=== PATIENT | male | born 1950 | race Caucasian/White ===

== ENCOUNTER 2016-09-17 22:44 | Emergency (ER) | payer BC ==
[~2016-09-17] VITALS: Ht 175.3 cm; Wt 104.3 kg
[~2016-09-17 22:44] MED LIST: ASPI81CH43 GT; AZIT250T; LISIPOW; METOPROLOL; SIMVPOW2
[2016-09-17 23:41] LABS: Urine Bilirubin Negative (Negative); Urine Blood TRACE /uL (Negative); Urine Color Yellow (Yellow); Urine Glucose Normal (Normal); Urine Ketone Negative (Negative); Urine Nitrite Negative (Negative); Urine RBC 1 /hpf (0 - 3); Urine Urobilinogen Normal (Negative); Urine pH 6.5 (5.0-8.0)
[2016-09-17 23:41] LABS: Basophils # (auto) 0 uL; Basophils % (auto) 0.3 % (0.0-2.0); DEFINITIVE VIEW TRANSMISSION; Eosinophils # (auto) 1.3 uL; Eosinophils % (auto) 11.4 % (0.0-7.0); Hematocrit 46.7 % (41.0-53.0); Hemoglobin 15.6 g/dL (13.5-17.5); Lymphocytes # (auto) 2.4 uL; Lymphocytes % (auto) 21.7 % (10.0-50.0); Mean Corpuscular Hemoglobin 29.1 pg (28.0-32.0); Mean Corpuscular Hgb Conc. 33.4 g/dL (32.0-36.0); Mean Corpuscular Volume 87.2 fL (80.0-100.0); Mean Platelet Volume 9.1 fL (7.4-10.4); Monocytes # (auto) 0.8 uL; Monocytes % (auto) 7.3 % (0.0-12.0); Neutrophils # (auto) 6.6 uL; Neutrophils % (auto) 59.3 % (37.0-80.0); Platelet Count (auto) 194 10^3/uL (140-450); Red Cell Distribution Width 14.1 % (11.6-16.0); White Blood Cell 11.2 10^3/uL (4.4-10.8)
[2016-09-17 23:56] LABS: Albumin 3.7 g/dL (3.4-5.0); Anion Gap 7 (5-15); Aspartate Aminotransferase 21 U/L (15-37); BUN/Creatinine Ratio 11.8; Blood Urea Nitrogen 14 mg/dL (7-18); Calcium 8.4 mg/dL (8.5-10.1); Carbon Dioxide 27 mmol/L (21-32); Chloride 103 mmol/L (98-107); GFR African American 79 mL/min; GFR Non-African American 65 mL/min; Glucose 157 mg/dL (74-106); Magnesium 2.2 mg/dL (1.6-2.6); Potassium 4.5 mmol/L (3.5-5.1); Sodium 137 mmol/L (136-145)
[2016-09-18 00:01] LABS: Alkaline Phosphatase 87 U/L (45-117); Bilirubin, Total 0.5 mg/dL (0.2-1.0); Total Protein 7.7 g/dL (6.4-8.2)
[2016-09-18] MEDS ORDERED: ALBUTEROL SULF 2.5 MG/0.5ML(0.5%) NEB SOLN ONE (00:41)
[2016-09-18] MEDS ORDERED: IPRATROPIUM BROM 0.5 MG/2.5ML INH SOL ONE (00:41)
[2016-09-18] MEDS ORDERED: IPRATROPIUM BROM 0.5 MG/2.5ML INH SOL NEB ONE (00:45)
[2016-09-18] MEDS ORDERED: ALBUTEROL SULF 2.5 MG/0.5ML(0.5%) NEB SOLN NEB ONE (00:45)
[2016-09-18 03:47] VITALS: BP 124/63
== END 2016-09-18 03:58 | disposition home or self-care (01) ==
LOC: ER 22:48
DX: J06.9 Acute upper respiratory infection, unspecified (principal); E78.5 Hyperlipidemia, unspecified; I10 Essential (primary) hypertension
CPT/HCPCS: 36415; 71020; 80053; 81001; 83735; 84484; 85025; 93005; 94640

== ENCOUNTER → 2017-02-11 | Outpatient (CLI) | payer BC ==
[2017-02-11 09:26] LABS: Basophils # (auto) 0.1 uL; Basophils % (auto) 0.8 % (0.0-2.0); CONDITION Y; DEFINITIVE SEE PRINTOUT; Eosinophils # (auto) 0.7 uL; Eosinophils % (auto) 10.3 % (0.0-7.0); Hematocrit 46.5 % (41.0-53.0); Hemoglobin 15.8 g/dL (13.5-17.5); Lymphocytes # (auto) 2.7 uL; Lymphocytes % (auto) 40.1 % (10.0-50.0); Mean Corpuscular Hemoglobin 29.5 pg (28.0-32.0); Mean Corpuscular Volume 86.6 fL (80.0-100.0); Mean Platelet Volume 9.8 fL (7.4-10.4); Monocytes # (auto) 0.6 uL; Monocytes % (auto) 8.5 % (0.0-12.0); Neutrophils # (auto) 2.8 uL; Neutrophils % (auto) 40.3 % (37.0-80.0); Platelet Count (auto) 190 10^3/uL (140-450); Red Cell Distribution Width 13.8 % (11.6-16.0); Urine Bilirubin Negative (Negative); Urine Blood TRACE /uL (Negative); Urine Color Yellow (Yellow); Urine Glucose Normal (Normal); Urine Ketone Negative (Negative); Urine Nitrite Negative (Negative); Urine RBC <1 /hpf (0 - 3); Urine Urobilinogen Normal (Negative); White Blood Cell 6.9 10^3/uL (4.4-10.8)
[2017-02-11 09:48] LABS: Albumin 3.7 g/dL (3.4-5.0); BUN/Creatinine Ratio 16.8; Bilirubin, Total 0.5 mg/dL (0.2-1.0); Calcium 8.8 mg/dL (8.5-10.1); Potassium 4.5 mmol/L (3.5-5.1); Total Protein 7.8 g/dL (6.4-8.2)
== END | disposition home or self-care (01) ==
LOC: LAB 08:05
PROVIDERS: ATTEND Internal Medicine
DX: I10 Essential (primary) hypertension (principal); Z11.59 Encounter for screening for other viral diseases; Z86.010 Personal history of colon polyps
CPT/HCPCS: 36415; 80053; 80061; 81001; 82270; 84153; 84443; 85025; 86704; 86706; 86708; 86803; 87340

== ENCOUNTER → 2017-09-18 | Outpatient (CLI) | payer BC ==
[2017-09-18 10:10] LABS: Alanine Aminotransferase 20 U/L (16-61); Aspartate Aminotransferase 17 U/L (15-37); Cholesterol 156 mg/dL (< 200); HDL Cholesterol 41 mg/dL (40-59); LDL Cholesterol 104 mg/dL (< 100); Triglycerides 116 mg/dL (< 150)
== END | disposition home or self-care (01) ==
LOC: LAB 08:04
PROVIDERS: ATTEND Internal Medicine
DX: I10 Essential (primary) hypertension (principal); E78.00 Pure hypercholesterolemia, unspecified
CPT/HCPCS: 36415; 80061; 84450; 84460

== ENCOUNTER → 2018-03-12 | Outpatient (CLI) | payer BC ==
[2018-03-12 09:55] LABS: Basophils # (auto) 0.1 uL; Basophils % (auto) 0.9 % (0.0-2.0); Eosinophils # (auto) 0.8 uL; Hematocrit 47.2 % (41.0-53.0); Hemoglobin 15.6 g/dL (13.5-17.5); Lymphocytes # (auto) 2.4 uL; Lymphocytes % (auto) 31.6 % (10.0-50.0); Mean Corpuscular Hemoglobin 29.5 pg (28.0-32.0); Mean Corpuscular Hgb Conc. 33.1 g/dL (32.0-36.0); Monocytes # (auto) 0.5 uL; Monocytes % (auto) 6.2 % (0.0-12.0); Neutrophils # (auto) 3.9 uL; Neutrophils % (auto) 51.3 % (37.0-80.0); Nucleated Red Blood Cells % 0.2 %; Platelet Count (auto) 153 10^3/uL (140-450); Red Cell Distribution Width 13.6 % (11.8-14.3); White Blood Cell 7.5 10^3/uL (4.4-10.8)
[2018-03-12 10:08] LABS: Urine Bacteria NONE SEEN /hpf (None Seen); Urine Blood Negative /uL (Negative); Urine Specific Gravity 1.005 (1.001-1.035); Urine WBC <1 /hpf (0 - 3)
[2018-03-12 10:26] LABS: Albumin 3.6 g/dL (3.4-5.0); BUN/Creatinine Ratio 14.3; Bilirubin, Total 0.5 mg/dL (0.2-1.0); Calcium 8.6 mg/dL (8.5-10.1); Potassium 4.5 mmol/L (3.5-5.1); Total Protein 7.6 g/dL (6.4-8.2)
[2018-03-12 13:52] LABS: Prostate Specific Antigen 1.05 ng/mL (0.0-4.0)
== END | disposition home or self-care (01) ==
LOC: LAB 09:03
PROVIDERS: ATTEND Internal Medicine
DX: I10 Essential (primary) hypertension (principal); J45.909 Unspecified asthma, uncomplicated; Z79.82 Long term (current) use of aspirin
CPT/HCPCS: 36415; 80053; 81001; 82043; 83036; 84153; 84439; 84443; 85025; 85652

== ENCOUNTER → 2018-08-25 | Outpatient (CLI) | payer BC ==
[2018-08-25 13:09] LABS: Basophils # (auto) 0 uL; Eosinophils # (auto) 0 uL; Hematocrit 47.1 % (41.0-53.0); Hemoglobin 15.7 g/dL (13.5-17.5); Lymphocytes # (auto) 2.1 uL; Lymphocytes % (auto) 14.5 % (10.0-50.0); Mean Corpuscular Hemoglobin 29.2 pg (28.0-32.0); Mean Corpuscular Hgb Conc. 33.4 g/dL (32.0-36.0); Mean Corpuscular Volume 87.6 fL (80.0-100.0); Monocytes # (auto) 1.6 uL; Monocytes % (auto) 11.1 % (0.0-12.0); Neutrophils # (auto) 10.8 uL; Neutrophils % (auto) 74.4 % (37.0-80.0); Nucleated Red Blood Cells % 0.1 %; Platelet Count (auto) 185 10^3/uL (140-450); Red Blood Cells 5.37 10^6/uL (4.5-5.90); Red Cell Distribution Width 14.6 % (11.8-14.3); White Blood Cell 14.5 10^3/uL (4.4-10.8)
[2018-08-25 13:38] LABS: Albumin 3.6 g/dL (3.4-5.0); Calcium 8.6 mg/dL (8.5-10.1); Potassium 4.4 mmol/L (3.5-5.1)
[2018-08-25 13:41] LABS: BUN/Creatinine Ratio 27.8; Bilirubin, Total 0.6 mg/dL (0.2-1.0); Total Protein 7.4 g/dL (6.4-8.2)
== END | disposition home or self-care (01) ==
LOC: LAB 12:06
PROVIDERS: ATTEND Internal Medicine
DX: J45.909 Unspecified asthma, uncomplicated (principal)
CPT/HCPCS: 36415; 80053; 85025; 85379

== ENCOUNTER → 2018-09-28 | Outpatient (CLI) | payer BC | END | disposition home or self-care (01) | LOC: LAB 08:44 | PROVIDERS: ATTEND Internal Medicine | DX: J45.41 Moderate persistent asthma with (acute) exacerbation (principal); R55 Syncope and collapse | CPT/HCPCS: 36415; 82565; 84520 ==

== ENCOUNTER → 2018-11-05 | Outpatient (CLI) | payer BC ==
[2018-11-05 10:39] LABS: Hematocrit 48.2 % (41.0-53.0); Mean Corpuscular Hemoglobin 29.7 pg (28.0-32.0); Mean Corpuscular Hgb Conc. 33.2 g/dL (32.0-36.0); Mean Corpuscular Volume 89.5 fL (80.0-100.0); Platelet Count (auto) 176 10^3/uL (140-450); Red Blood Cells 5.39 10^6/uL (4.5-5.90); Red Cell Distribution Width 14.2 % (11.8-14.3); White Blood Cell 10.4 10^3/uL (4.4-10.8)
[2018-11-05 10:40] LABS: Band Neutrophils % (manual) 0; Basophils % (manual) 0 (0.0-2.0); Blast Cells 0; Metamyelocytes % 0; Myelocytes % 0; Promyelocytes % 0; Reactive Lymphocytes 0
[2018-11-05 10:48] LABS: Chloride 104 mmol/L (98-107); Potassium 4.1 mmol/L (3.5-5.1); Sodium 138 mmol/L (136-145)
[2018-11-05 10:51] LABS: Anion Gap 6 (5-15); Blood Urea Nitrogen 12 mg/dL (7-18); Calcium 9.2 mg/dL (8.5-10.1); Carbon Dioxide 28 mmol/L (21-32); Glucose 103 mg/dL (74-106)
[2018-11-05 10:57] LABS: Alanine Aminotransferase 19 U/L (16-61); Alkaline Phosphatase 79 U/L (45-117); Aspartate Aminotransferase 14 U/L (15-37); BUN/Creatinine Ratio 11.3; Bilirubin, Total 0.6 mg/dL (0.2-1.0); GFR African American 90 mL/min; GFR Non-African American 74 mL/min; Total Protein 8.1 g/dL (6.4-8.2)
[2018-11-05 11:09] LABS: Eosinophils % (manual) 27 (0-7); Lymphocytes % (manual) 36 (10.0-50.0); Monocytes % (manual) 5 (0-12)
== END | disposition home or self-care (01) ==
LOC: LAB 10:19
PROVIDERS: ATTEND Internal Medicine
DX: R06.00 Dyspnea, unspecified (principal); Z87.09 Personal history of other diseases of the respiratory system
CPT/HCPCS: 36415; 80053; 84484; 85007; 85027

== ENCOUNTER → 2018-12-15 | Outpatient (CLI) | payer BC ==
[~2018-12-15] VITALS: Ht 175.3 cm; Wt 99.8 kg
[~2018-12-15] MED LIST changes: +DOBUTamine 1000MCG/ML 100 ML IV ONE
== END | disposition home or self-care (01) ==
LOC: XY 07:42
PROVIDERS: ATTEND Internal Medicine
DX: I10 Essential (primary) hypertension (principal)
CPT/HCPCS: 78452; 93017; A9500; J1250

== ENCOUNTER → 2018-12-16 | Outpatient (CLI) | payer BC ==
[~2018-12-16] MED LIST changes: -DOBUTamine 1000MCG/ML 100 ML IV ONE
== END | disposition home or self-care (01) ==
LOC: XYW 07:45
PROVIDERS: ATTEND Internal Medicine
DX: I08.8 Other rheumatic multiple valve diseases (principal); I10 Essential (primary) hypertension
CPT/HCPCS: 93306

== ENCOUNTER → 2019-01-14 | Outpatient (CLI) | payer BC ==
[~2019-01-14] MED LIST changes: +ALBUTEROL SULF 2.5 MG/0.5ML(0.5%) NEB SOLN ONE
== END | disposition home or self-care (01) ==
LOC: RT 09:13
PROVIDERS: ATTEND Internal Medicine Pulmonary Disease
DX: J45.909 Unspecified asthma, uncomplicated (principal)
CPT/HCPCS: 94060; J7611

== ENCOUNTER → 2019-04-01 | Outpatient (CLI) | payer BC ==
[~2019-04-01] MED LIST changes: -ALBUTEROL SULF 2.5 MG/0.5ML(0.5%) NEB SOLN ONE
[2019-04-01 08:41] LABS: Hematocrit 47.2 % (41.0-53.0); Hemoglobin 15.4 g/dL (13.5-17.5); Mean Corpuscular Hemoglobin 29.1 pg (28.0-32.0); Mean Corpuscular Hgb Conc. 32.6 g/dL (32.0-36.0); Mean Corpuscular Volume 89.1 fL (80.0-100.0); Platelet Count (auto) 149 10^3/uL (140-450); Red Blood Cells 5.29 10^6/uL (4.5-5.90); Red Cell Distribution Width 14.4 % (11.8-14.3); White Blood Cell 7.2 10^3/uL (4.4-10.8)
[2019-04-01 08:46] LABS: Basophils % (manual) 0 (0.0-2.0); Blast Cells 0; Metamyelocytes % 0; Myelocytes % 0; Promyelocytes % 0; Reactive Lymphocytes 0; Urine Bacteria FEW /hpf (None Seen); Urine Blood Negative /uL (Negative); Urine Specific Gravity 1.015 (1.001-1.035); Urine WBC <1 /hpf (0 - 3)
[2019-04-01 09:47] LABS: Albumin 3.8 g/dL (3.4-5.0); Potassium 4.5 mmol/L (3.5-5.1)
[2019-04-01 09:52] LABS: Free T4 (Free Thyroxine) 1.03 ng/dL (0.89-1.76); Prostate Specific Antigen 1.12 ng/mL (0.0-4.0)
[2019-04-01 09:56] LABS: Bilirubin, Total 0.6 mg/dL (0.2-1.0); Calcium 8.9 mg/dL (8.5-10.1); Total Protein 7.5 g/dL (6.4-8.2)
[2019-04-01 10:49] LABS: Band Neutrophils % (manual) 1; Eosinophils % (manual) 14 (0-7); Lymphocytes % (manual) 38 (10.0-50.0); Monocytes % (manual) 8 (0-12)
== END | disposition home or self-care (01) ==
LOC: LAB 08:06
PROVIDERS: ATTEND Internal Medicine
DX: E78.5 Hyperlipidemia, unspecified (principal); I10 Essential (primary) hypertension
CPT/HCPCS: 36415; 80053; 80061; 81001; 82043; 84153; 84439; 84443; 85007; 85027; 85652

== ENCOUNTER → 2019-09-27 | Outpatient (CLI) | payer BC ==
[2019-09-27 09:53] LABS: Basophils # (auto) 0.1 10 ^3/uL (0-0.2); Basophils % (auto) 1.2 % (0.0-2.0); Eosinophils % (auto) 13.6 % (0.0-7.0); Hematocrit 48.7 % (41.0-53.0); Hemoglobin 16.4 g/dL (13.5-17.5); Lymphocytes # (auto) 2.3 10 ^3/uL (0.4-5.4); Lymphocytes % (auto) 30.8 % (10.0-50.0); Mean Corpuscular Hemoglobin 29.7 pg (28.0-32.0); Mean Corpuscular Hgb Conc. 33.7 g/dL (32.0-36.0); Mean Corpuscular Volume 88.2 fL (80.0-100.0); Monocytes # (auto) 0.7 10 ^3/uL (0-1.3); Neutrophils # (auto) 3.3 10 ^3/uL (1.6-8.6); Neutrophils % (auto) 44.4 % (37.0-80.0); Platelet Count (auto) 167 10^3/uL (140-450); Red Blood Cells 5.52 10^6/uL (4.5-5.90); Red Cell Distribution Width 13.9 % (11.8-14.3); White Blood Cell 7.4 10^3/uL (4.4-10.8)
[2019-09-27 10:25] LABS: Potassium 4.3 mmol/L (3.5-5.1)
[2019-09-27 10:44] LABS: Albumin 3.9 g/dL (3.4-5.0); BUN/Creatinine Ratio 17.3; Bilirubin, Total 0.5 mg/dL (0.2-1.0); Calcium 9.3 mg/dL (8.5-10.1); Total Protein 7.9 g/dL (6.4-8.2)
== END | disposition home or self-care (01) ==
LOC: LAB 09:35
PROVIDERS: ATTEND Internal Medicine
DX: J45.901 Unspecified asthma with (acute) exacerbation (principal)
CPT/HCPCS: 36415; 80053; 85025; 85652

== ENCOUNTER → 2019-12-15 | Outpatient (CLI) | payer OTHER | END | disposition home or self-care (01) | LOC: LAB 06:30 | PROVIDERS: ATTEND Nurse Practitioner Family | DX: Z03.818 Encounter for observation for suspected exposure to other biological agents ruled out (principal) ==

== ENCOUNTER → 2020-04-19 | Outpatient (CLI) | payer BC ==
[2020-04-19 09:24] LABS: Urine WBC None Seen /hpf (0 - 3)
[2020-04-19 09:37] LABS: Urine Bacteria NONE SEEN /hpf (None Seen); Urine Blood Negative /uL (Negative); Urine Specific Gravity 1.007 (1.001-1.035)
[2020-04-19 09:39] LABS: Basophils # (auto) 0.1 10 ^3/uL (0-0.2); Basophils % (auto) 1.1 % (0.0-2.0); Eosinophils # (auto) 0.9 10 ^3/uL (0-0.8); Eosinophils % (auto) 11.4 % (0.0-7.0); Hematocrit 47.6 % (41.0-53.0); Hemoglobin 16.3 g/dL (13.5-17.5); Lymphocytes # (auto) 2.8 10 ^3/uL (0.4-5.4); Lymphocytes % (auto) 35.3 % (10.0-50.0); Mean Corpuscular Hemoglobin 29.9 pg (28.0-32.0); Mean Corpuscular Hgb Conc. 34.1 g/dL (32.0-36.0); Mean Corpuscular Volume 87.7 fL (80.0-100.0); Monocytes # (auto) 0.7 10 ^3/uL (0-1.3); Monocytes % (auto) 8.6 % (0.0-12.0); Neutrophils # (auto) 3.4 10 ^3/uL (1.6-8.6); Neutrophils % (auto) 43.6 % (37.0-80.0); Nucleated Red Blood Cells % 0.2 %; Platelet Count (auto) 170 10^3/uL (140-450); Red Blood Cells 5.43 10^6/uL (4.5-5.90); Red Cell Distribution Width 14.2 % (11.8-14.3); White Blood Cell 7.8 10^3/uL (4.4-10.8)
[2020-04-19 10:00] LABS: Calcium 9.5 mg/dL (8.5-10.1); Potassium 4.6 mmol/L (3.5-5.1)
[2020-04-19 10:06] LABS: BUN/Creatinine Ratio 16.2; Bilirubin, Total 0.8 mg/dL (0.2-1.0); Total Protein 7.8 g/dL (6.4-8.2)
[2020-04-19 10:11] LABS: Free T4 (Free Thyroxine) 1.23 ng/dL (0.89-1.76); Prostate Specific Antigen 1.12 ng/mL (0.0-4.0)
== END | disposition home or self-care (01) ==
LOC: LAB 08:49
PROVIDERS: ATTEND Internal Medicine
DX: Z12.5 Encounter for screening for malignant neoplasm of prostate (principal); I10 Essential (primary) hypertension; J45.909 Unspecified asthma, uncomplicated
CPT/HCPCS: 36415; 80053; 80061; 81001; 84153; 84439; 84443; 85025; 85652

== ENCOUNTER → 2020-06-11 | Outpatient (CLI) | payer BC | END | disposition home or self-care (01) | LOC: LAB 13:57 | PROVIDERS: ATTEND Nurse Practitioner Family | DX: Z20.828 Contact with and (suspected) exposure to other viral communicable diseases (principal) | CPT/HCPCS: C9803; U0003 ==

== ENCOUNTER → 2020-09-03 | Outpatient (CLI) | payer BC ==
[2020-09-03 11:52] LABS: Hematocrit 44.8 % (41.0-53.0); Hemoglobin 14.8 g/dL (13.5-17.5); Mean Corpuscular Hemoglobin 29.6 pg (28.0-32.0); Mean Corpuscular Hgb Conc. 33.1 g/dL (32.0-36.0); Mean Corpuscular Volume 89.3 fL (80.0-100.0); Platelet Count (auto) 192 10^3/uL (140-450); Red Blood Cells 5.02 10^6/uL (4.5-5.90); White Blood Cell 12.4 10^3/uL (4.4-10.8)
[2020-09-03 11:58] LABS: Band Neutrophils % (manual) 0; Basophils % (manual) 0 (0.0-2.0); Blast Cells 0; Myelocytes % 0; Promyelocytes % 0; Reactive Lymphocytes 0
[2020-09-03 12:18] LABS: Eosinophils % (manual) 12 (0-7); Lymphocytes % (manual) 34 (10.0-50.0); Metamyelocytes % 1; Monocytes % (manual) 12 (0-12)
[2020-09-03 12:25] LABS: Potassium 4.4 mmol/L (3.5-5.1)
[2020-09-03 12:31] LABS: Albumin 3.4 g/dL (3.4-5.0); BUN/Creatinine Ratio 22.3; Bilirubin, Total 0.5 mg/dL (0.2-1.0); Calcium 8.5 mg/dL (8.5-10.1); Total Protein 7.5 g/dL (6.4-8.2)
== END | disposition home or self-care (01) ==
LOC: LAB 11:02
PROVIDERS: ATTEND Internal Medicine
DX: J45.21 Mild intermittent asthma with (acute) exacerbation (principal); Z20.818 Contact with and (suspected) exposure to other bacterial communicable diseases
CPT/HCPCS: 36415; 80053; 85007; 85027; 87070; 87205

== ENCOUNTER → 2021-06-18 | Day surgery (SDC) | payer BC ==
[2021-06-17 10:27] LABS: Urine WBC None Seen /hpf (0 - 3)
[2021-06-17 10:38] LABS: Urine Bacteria NONE SEEN /hpf (None Seen); Urine Blood Negative /uL (Negative); Urine Specific Gravity 1.011 (1.001-1.035)
[2021-06-17 10:44] LABS: Basophils # (auto) 0.1 10 ^3/uL (0-0.2); Basophils % (auto) 0.8 % (0.0-2.0); Eosinophils # (auto) 0.8 10 ^3/uL (0-0.8); Eosinophils % (auto) 9.6 % (0.0-7.0); Hematocrit 45.5 % (41.0-53.0); Hemoglobin 15.5 g/dL (13.5-17.5); Lymphocytes # (auto) 2.8 10 ^3/uL (0.4-5.4); Lymphocytes % (auto) 31.9 % (10.0-50.0); Mean Corpuscular Hgb Conc. 34.1 g/dL (32.0-36.0); Mean Corpuscular Volume 87.9 fL (80.0-100.0); Monocytes # (auto) 0.8 10 ^3/uL (0-1.3); Monocytes % (auto) 9.2 % (0.0-12.0); Neutrophils # (auto) 4.3 10 ^3/uL (1.6-8.6); Neutrophils % (auto) 48.5 % (37.0-80.0); Nucleated Red Blood Cells % 0.2 %; Red Blood Cells 5.18 10^6/uL (4.5-5.90); Red Cell Distribution Width 13.8 % (11.8-14.3); White Blood Cell 8.9 10^3/uL (4.4-10.8)
[2021-06-17 11:27] LABS: Potassium 4.5 mmol/L (3.5-5.1)
[2021-06-17 11:34] LABS: Albumin 3.6 g/dL (3.4-5.0); BUN/Creatinine Ratio 20.6; Bilirubin, Total 0.6 mg/dL (0.2-1.0); Calcium 8.8 mg/dL (8.5-10.1); Total Protein 7.6 g/dL (6.4-8.2)
[~2021-06-18] MED LIST changes: -ASPI81CH43 GT; -AZIT250T; +FLUT500M2 IN; +LATA0.0019 EACHEYE; -METOPROLOL; +MONT-8 OR; +SIMETHICONE 40 MG/0.6 ML ORAL DROP ONE; +TRIA37.56 PO
[2021-06-18] MEDS: diphenhdrAMINE HCL 50 MG/1 ML VL ONE ×2 (10:59→11:04)
[2021-06-18] MEDS: fentaNYL CITRATE 100 MCG/2 ML VL ONE ×3 (10:59→11:16)
[2021-06-18] MEDS: MIDAZOLAM HCL 5 MG/ML-1ML VIAL ONE ×2 (10:59→11:09)
[2021-06-18 12:00] VITALS: BP 121/65
== END | disposition home or self-care (01) ==
LOC: GI 09:07
PROVIDERS: ATTEND Internal Medicine Gastroenterology
DX: R19.4 Change in bowel habit (principal); Q43.8 Other specified congenital malformations of intestine; K64.8 Other hemorrhoids; J45.909 Unspecified asthma, uncomplicated; I10 Essential (primary) hypertension; Z20.822 Contact with and (suspected) exposure to COVID-19
CPT/HCPCS: 36415; 45378; 80053; 81001; 85025; J1200; J2250; J3010; J7030; U0003; 99152; 99153

== ENCOUNTER 2021-10-24 08:30 | Outpatient (CLI) | payer BC ==
[~2021-10-24] VITALS: Ht 175.3 cm; Wt 99.8 kg
[~2021-10-24 08:30] MED LIST changes: -SIMETHICONE 40 MG/0.6 ML ORAL DROP ONE
[2021-10-24 09:22] LABS: Urine WBC None Seen /hpf (0 - 3)
[2021-10-24] MEDS ORDERED: [UNRECOGNIZED DRUG - CODE] IJ (09:23)
[2021-10-24 09:27] LABS: Basophils # (auto) 0.1 10 ^3/uL (0-0.2); Basophils % (auto) 0.7 % (0.0-2.0); Eosinophils % (auto) 12.3 % (0.0-7.0); Hematocrit 44.8 % (41.0-53.0); Hemoglobin 14.9 g/dL (13.5-17.5); Lymphocytes # (auto) 2.7 10 ^3/uL (0.4-5.4); Lymphocytes % (auto) 33.5 % (10.0-50.0); Mean Corpuscular Hgb Conc. 33.2 g/dL (32.0-36.0); Mean Corpuscular Volume 87.3 fL (80.0-100.0); Monocytes # (auto) 0.8 10 ^3/uL (0-1.3); Monocytes % (auto) 9.5 % (0.0-12.0); Neutrophils # (auto) 3.5 10 ^3/uL (1.6-8.6); Nucleated Red Blood Cells % 0.3 %; Red Blood Cells 5.13 10^6/uL (4.5-5.90); Red Cell Distribution Width 14.2 % (11.8-14.3); White Blood Cell 8.1 10^3/uL (4.4-10.8)
[2021-10-24 09:33] LABS: Urine Bacteria NONE SEEN /hpf (None Seen); Urine Blood Negative /uL (Negative); Urine Specific Gravity 1.018 (1.001-1.035)
[2021-10-24 09:42] LABS: INR 1.04 (0.9-1.15); Partial Thromboplastin Time 27.3 sec (23.6-33.0)
[2021-10-24 10:18] LABS: Potassium 4.4 mmol/L (3.5-5.1)
[2021-10-24 10:28] LABS: Albumin 3.5 g/dL (3.4-5.0); BUN/Creatinine Ratio 18.6; Bilirubin, Total 0.6 mg/dL (0.2-1.0); Total Protein 7.8 g/dL (6.4-8.2)
== END 2021-10-24 09:31 | disposition home or self-care (01) ==
LOC: LAB 08:30 → EDSTATUS 10-29 09:00
PROVIDERS: ATTEND Otolaryngology
DX: Z01.812 Encounter for preprocedural laboratory examination (principal); Z20.822 Contact with and (suspected) exposure to COVID-19; J32.4 Chronic pansinusitis; J34.2 Deviated nasal septum
CPT/HCPCS: 36415; 80053; 81001; 85025; 85610; 85730; U0003

== ENCOUNTER → 2021-11-07 | Outpatient (CLI) | payer BC ==
[~2021-11-07] MED LIST changes: +[UNRECOGNIZED DRUG - CODE] IJ
[2021-11-07 10:01] LABS: Potassium 4.4 mmol/L (3.5-5.1)
[2021-11-07 10:09] LABS: Albumin 3.5 g/dL (3.4-5.0); BUN/Creatinine Ratio 19.8; Bilirubin, Total 0.6 mg/dL (0.2-1.0); Calcium 9.1 mg/dL (8.5-10.1); Total Protein 7.6 g/dL (6.4-8.2)
[2021-11-07 10:11] LABS: Free T4 (Free Thyroxine) 1.1 ng/dL (0.89-1.76); Prostate Specific Antigen 1.01 ng/mL (0.0-4.0)
== END | disposition home or self-care (01) ==
LOC: LAB 09:04
PROVIDERS: ATTEND Internal Medicine
DX: I10 Essential (primary) hypertension (principal); E03.8 Other specified hypothyroidism; E11.22 Type 2 diabetes mellitus with diabetic chronic kidney disease; I12.9 Hypertensive chronic kidney disease with stage 1 through stage 4 chronic kidney disease, or unspecified chronic kidney disease; N18.30 Chronic kidney disease, stage 3 unspecified
CPT/HCPCS: 36415; 80053; 82306; 83036; 84153; 84439; 84443

== ENCOUNTER → 2022-01-08 | Outpatient (CLI) | payer BC | END | disposition home or self-care (01) | LOC: LAB 08:35 | PROVIDERS: ATTEND Internal Medicine | DX: R53.83 Other fatigue (principal); I10 Essential (primary) hypertension | CPT/HCPCS: 82306; 84402; 84403 ==

== ENCOUNTER → 2022-02-24 | Outpatient (CLI) | payer BC | END | disposition home or self-care (01) | LOC: XYW 07:40 | PROVIDERS: ATTEND Internal Medicine | DX: I07.1 Rheumatic tricuspid insufficiency (principal); I10 Essential (primary) hypertension | CPT/HCPCS: 93306 ==

== ENCOUNTER 2022-05-06 06:15 | Day surgery (SDC) | payer BC, OTHER ==
[2022-05-02 09:49] LABS: Urine WBC None Seen /hpf (0 - 3)
[2022-05-02 09:52] LABS: Basophils # (auto) 0.1 10 ^3/uL (0-0.2); Basophils % (auto) 1.2 % (0.0-2.0); Eosinophils # (auto) 1.1 10 ^3/uL (0-0.8); Eosinophils % (auto) 13.3 % (0.0-7.0); Hematocrit 45.4 % (41.0-53.0); Hemoglobin 14.9 g/dL (13.5-17.5); Lymphocytes # (auto) 2.3 10 ^3/uL (0.4-5.4); Mean Corpuscular Hemoglobin 28.7 pg (28.0-32.0); Mean Corpuscular Hgb Conc. 32.8 g/dL (32.0-36.0); Mean Corpuscular Volume 87.5 fL (80.0-100.0); Monocytes # (auto) 0.9 10 ^3/uL (0-1.3); Monocytes % (auto) 10.8 % (0.0-12.0); Neutrophils # (auto) 4.1 10 ^3/uL (1.6-8.6); Neutrophils % (auto) 47.7 % (37.0-80.0); Nucleated Red Blood Cells % 0.1 %; Red Blood Cells 5.19 10^6/uL (4.5-5.90); Red Cell Distribution Width 14.1 % (11.8-14.3); White Blood Cell 8.5 10^3/uL (4.4-10.8)
[2022-05-02 09:59] LABS: Urine Bacteria NONE SEEN /hpf (None Seen); Urine Blood TRACE /uL (Negative); Urine Specific Gravity 1.014 (1.001-1.035)
[2022-05-02 10:16] LABS: Potassium 4.7 mmol/L (3.5-5.1)
[2022-05-02 10:23] LABS: INR 1.01 (0.9-1.15); Partial Thromboplastin Time 27.1 sec (24.6-33.4)
[2022-05-02 10:25] LABS: Albumin 3.7 g/dL (3.4-5.0); BUN/Creatinine Ratio 22.3; Bilirubin, Total 0.5 mg/dL (0.2-1.0); Total Protein 7.2 g/dL (6.4-8.2)
[~2022-05-06] VITALS: Ht 175.3 cm; Wt 99.8 kg
[~2022-05-06 06:15] MED LIST changes: +ALBUAER3 IN; +ASPI-378 OR; +CHOL25CH3 PO; +LISI-716 PO; -LISIPOW; +SIMV10TA84 PO; -SIMVPOW2; -[UNRECOGNIZED DRUG - CODE] IJ
[2022-05-06] MEDS ORDERED: EPINEPHrine HCL 1 MG/1 ML AMP ONE (06:53)
[2022-05-06] MEDS ORDERED: LIDOCAINE 1%HCL (LOCAL ANESTH) 10 ML MDV ONE ×2 (06:53→07:08)
[2022-05-06] MEDS ORDERED: COCAINE HCL 4% TOP SOL 4ML TOP ONE (06:55)
[2022-05-06] MEDS ORDERED: fentaNYL CITRATE 100 MCG/2 ML VL ONE (07:34)
[2022-05-06] MEDS ORDERED: PROPOFOL 10 MG/ML 20 ML IV ONE (07:35)
[2022-05-06] MEDS ORDERED: ONDANSETRON HCL 4 MG/2 ML VIAL ONE (07:35)
[2022-05-06] MEDS ORDERED: ROCURONIUM 10MG/ML 10ML VIAL IV ONE (07:35)
[2022-05-06] MEDS ORDERED: LIDOCAINE 2% (LOCAL ANESTH.) PF 5ml SDV ONE (07:35)
[2022-05-06] MEDS ORDERED: MIDAZOLAM HCL 2MG/2ML 2ml VIAL (1mg/ml) ONE (07:35)
[2022-05-06] MEDS ORDERED: ePHEDrine SULFATE 50 MG/ML AMP ONE (08:14)
[2022-05-06] MEDS ORDERED: NEOMYCIN-BACITRACIN-POLYM 15GM TOP OINT TOP ONE (09:36)
[2022-05-06] MEDS ORDERED: GLYCOPYRROLATE 0.2 MG/ML 1ML VIAL ONE (10:02)
[2022-05-06] MEDS ORDERED: NEOSTIGMINE 1 MG/ML INJ (10mg/10ML VIAL) ONE (10:02)
[2022-05-06 10:50] VITALS: BP 118/63
== END 2022-05-06 11:00 | disposition home or self-care (01) ==
LOC: SUR 06:15
PROVIDERS: ATTEND Otolaryngology
DX: J32.4 Chronic pansinusitis (principal); J34.2 Deviated nasal septum; J32.1 Chronic frontal sinusitis; J32.2 Chronic ethmoidal sinusitis; J32.3 Chronic sphenoidal sinusitis; J32.0 Chronic maxillary sinusitis; J34.3 Hypertrophy of nasal turbinates; J33.8 Other polyp of sinus; J45.909 Unspecified asthma, uncomplicated; E78.00 Pure hypercholesterolemia, unspecified
CPT/HCPCS: 30140; 30520; 31253; 31267; 31287; 36415; 80053; 81001; 85025; 85610; 85730; 88305; J0171; J2001; J2250; J2405; J2704; J3010; U0003

== ENCOUNTER → 2023-08-28 | Outpatient (CLI) | payer BC ==
[~2023-08-28] MED LIST changes: -LATA0.0019 EACHEYE; +LATA0.008 EACHEYE; -LISI-716 PO; +LISI10TA34 PO; +SIMV10TA20 PO; -SIMV10TA84 PO; -TRIA37.56 PO; +TRIA37.587 PO
[2023-08-28 11:10] LABS: Basophils # (auto) 0.1 10 ^3/uL (0-0.2); Basophils % (auto) 1.2 % (0.0-2.0); Eosinophils # (auto) 1.4 10 ^3/uL (0-0.8); Eosinophils % (auto) 14.7 % (0.0-7.0); Hematocrit 46.4 % (41.0-53.0); Hemoglobin 15.5 g/dL (13.5-17.5); Lymphocytes # (auto) 3.1 10 ^3/uL (0.4-5.4); Lymphocytes % (auto) 31.1 % (10.0-50.0); Mean Corpuscular Hemoglobin 29.5 pg (28.0-32.0); Mean Corpuscular Hgb Conc. 33.4 g/dL (32.0-36.0); Mean Corpuscular Volume 88.4 fL (80.0-100.0); Monocytes # (auto) 0.8 10 ^3/uL (0-1.3); Monocytes % (auto) 8.4 % (0.0-12.0); Neutrophils # (auto) 4.4 10 ^3/uL (1.6-8.6); Neutrophils % (auto) 44.6 % (37.0-80.0); Nucleated Red Blood Cells % 0.1 %; Red Blood Cells 5.25 10^6/uL (4.5-5.90); White Blood Cell 9.8 10^3/uL (4.4-10.8)
[2023-08-28 11:53] LABS: Alanine Aminotransferase 16 U/L (7-40); Albumin 4.4 g/dL (3.2-4.8); Alkaline Phosphatase 87 U/L (46-116); Anion Gap 4 (5-15); Aspartate Aminotransferase 26 U/L (13-40); BUN/Creatinine Ratio 18.3 (10.0-20.0); Blood Urea Nitrogen 20 mg/dL (9-23); Calcium 9.8 mg/dL (8.5-10.1); Carbon Dioxide 29 mmol/L (20-30); Chloride 104 mmol/L (98-107); Glucose 80 mg/dL (74-106); Potassium 4.9 mmol/L (3.5-5.1); Sodium 137 mmol/L (136-145)
[2023-08-28 11:54] LABS: Bilirubin, Total 0.7 mg/dL (0.2-1.0); Total Protein 7.6 g/dL (5.7-8.2)
== END | disposition home or self-care (01) ==
LOC: LAB 10:51
PROVIDERS: ATTEND Internal Medicine
DX: I10 Essential (primary) hypertension (principal); E78.5 Hyperlipidemia, unspecified
CPT/HCPCS: 36415; 80053; 85025

== ENCOUNTER → 2024-03-02 | Outpatient (CLI) | payer BC ==
[2024-03-02 07:14] LABS: Urine Bacteria None Seen /hpf (None Seen)
[2024-03-02 07:32] LABS: Urine Blood TRACE /uL (Negative); Urine Clarity Clear (Clear); Urine Color Light-Yellow (Yellow); Urine Protein, UAD Negative (Negative); Urine Specific Gravity 1.023 (1.001-1.035); Urine Urobilinogen Normal (Negative); Urine WBC <1 /hpf (0 - 3)
[2024-03-02 07:35] LABS: Basophils # (auto) 0.1 10 ^3/uL (0-0.2); Basophils % (auto) 0.8 % (0.0-2.0); Eosinophils # (auto) 0.7 10 ^3/uL (0-0.8); Eosinophils % (auto) 9.4 % (0.0-7.0); Hematocrit 44.3 % (41.0-53.0); Hemoglobin 14.9 g/dL (13.5-17.5); Lymphocytes # (auto) 2.3 10 ^3/uL (0.4-5.4); Lymphocytes % (auto) 30.2 % (10.0-50.0); Mean Corpuscular Hgb Conc. 33.7 g/dL (32.0-36.0); Mean Corpuscular Volume 89.2 fL (80.0-100.0); Monocytes # (auto) 0.7 10 ^3/uL (0-1.3); Monocytes % (auto) 9.5 % (0.0-12.0); Neutrophils # (auto) 3.9 10 ^3/uL (1.6-8.6); Neutrophils % (auto) 50.1 % (37.0-80.0); Nucleated Red Blood Cells % 0.1 %; Red Blood Cells 4.97 10^6/uL (4.5-5.90); Red Cell Distribution Width 14.8 % (11.8-14.3); White Blood Cell 7.7 10^3/uL (4.4-10.8)
[2024-03-02 07:50] LABS: Alanine Aminotransferase 18 U/L (7-40); Alkaline Phosphatase 81 U/L (46-116); Anion Gap 2 (5-15); Aspartate Aminotransferase 13 U/L (13-40); Blood Urea Nitrogen 24 mg/dL (9-23); Calcium 9.6 mg/dL (8.7-10.4); Carbon Dioxide 32 mmol/L (20-30); Chloride 105 mmol/L (98-107); Glucose 128 mg/dL (74-106); LDL Cholesterol 111 mg/dL (< 100); Potassium 4.6 mmol/L (3.5-5.1); Prostate Specific Antigen 1.35 ng/mL (0.0-4.0); Sodium 139 mmol/L (136-145); Triglycerides 68 mg/dL (< 150)
[2024-03-02 07:51] LABS: Albumin 4.2 g/dL (3.2-4.8); Bilirubin, Total 0.6 mg/dL (0.2-1.0); Cholesterol 177 mg/dL (< 200); HDL Cholesterol 53 mg/dL (40-59); Total Protein 7.2 g/dL (5.7-8.2)
[2024-03-02 07:54] LABS: Free T4 (Free Thyroxine) 1.08 ng/dL (0.89-1.76)
[2024-03-02 09:29] LABS: Erythrocyte Sedimentation Rate 13 mm/hr (0-20)
[2024-03-05 10:07] LABS: Immunoglobulin E 165 IU/mL (6-495)
== END | disposition home or self-care (01) ==
LOC: LAB 06:55
PROVIDERS: ATTEND Internal Medicine
DX: I10 Essential (primary) hypertension (principal); E78.5 Hyperlipidemia, unspecified; N40.0 Benign prostatic hyperplasia without lower urinary tract symptoms; J45.909 Unspecified asthma, uncomplicated; E11.9 Type 2 diabetes mellitus without complications; R79.0 Abnormal level of blood mineral; Z79.899 Other long term (current) drug therapy
CPT/HCPCS: 36415; 80053; 80061; 81001; 82306; 82785; 83036; 84153; 84439; 84443; 85025; 85652

== ENCOUNTER → 2024-04-04 | Outpatient (CLI) | payer BC | END | disposition home or self-care (01) | LOC: LAB 10:27 | PROVIDERS: ATTEND Internal Medicine | DX: R93.89 Abnormal findings on diagnostic imaging of other specified body structures (principal) | CPT/HCPCS: 36415; 82565; 84520 ==

== ENCOUNTER 2024-05-10 11:23 | Inpatient (IN) | payer BC ==
[~2024-05-10] VITALS: Ht 175.3 cm; Wt 97.7 kg
[~2024-05-10 11:23] MED LIST changes: -MONT-8 OR; +MONT-8 PO; +TAMS0.4C39 PO
[2024-05-10 11:48] LABS: Basophils # (auto) 0.1 10 ^3/uL (0-0.2); Basophils % (auto) 0.8 % (0.0-2.0); Eosinophils # (auto) 0.4 10 ^3/uL (0-0.8); Eosinophils % (auto) 3.6 % (0.0-7.0); Hematocrit 49.1 % (41.0-53.0); Hemoglobin 16.6 g/dL (13.5-17.5); Lymphocytes # (auto) 2.7 10 ^3/uL (0.4-5.4); Lymphocytes % (auto) 27.2 % (10.0-50.0); Mean Corpuscular Hemoglobin 30.1 pg (28.0-32.0); Mean Corpuscular Hgb Conc. 33.7 g/dL (32.0-36.0); Mean Corpuscular Volume 89.3 fL (80.0-100.0); Monocytes # (auto) 0.8 10 ^3/uL (0-1.3); Monocytes % (auto) 7.9 % (0.0-12.0); Neutrophils # (auto) 6.1 10 ^3/uL (1.6-8.6); Neutrophils % (auto) 60.5 % (37.0-80.0); Nucleated Red Blood Cells % 0.1 %; Platelet Count (auto) 174 10^3/uL (140-450); Red Cell Distribution Width 14.4 % (11.8-14.3); White Blood Cell 10.1 10^3/uL (4.4-10.8)
[2024-05-10 12:23] LABS: Alanine Aminotransferase 19 U/L (7-40); Alkaline Phosphatase 80 U/L (46-116); Calcium 9.8 mg/dL (8.7-10.4)
[2024-05-10 12:24] LABS: Albumin 4.6 g/dL (3.2-4.8); Anion Gap 4 (5-15); Aspartate Aminotransferase 17 U/L (13-40); BUN/Creatinine Ratio 15.3 (10.0-20.0); Bilirubin, Total 0.7 mg/dL (0.2-1.0); Blood Urea Nitrogen 19 mg/dL (9-23); Carbon Dioxide 26 mmol/L (20-31); Chloride 106 mmol/L (98-107); Glucose 103 mg/dL (74-106); Potassium 4.1 mmol/L (3.5-5.1); Sodium 136 mmol/L (136-145); Total Protein 7.8 g/dL (5.7-8.2)
[2024-05-10] MEDS ORDERED: HYDROcodone-ACET 5/325MG TAB PO PRN (12:45)
[2024-05-10] MEDS ORDERED: METOPROLOL TARTRATE 1MG/1ML-5ML VIAL IV ONE (12:45)
[2024-05-10] MEDS ORDERED: DOCUSATE SOD 100 MG CAP PO PRN (12:45)
[2024-05-10] MEDS ORDERED: ONDANSETRON HCL 4 MG/2 ML VIAL IV PRN (12:45)
[2024-05-10] MEDS ORDERED: MAALOX PLUS or MAALOX 30 ML PO PRN (12:45)
[2024-05-10] MEDS ORDERED: HYDROmorphone HCL 2 MG/ML VL/or syr IV PRN (12:45)
[2024-05-10] MEDS ORDERED: ACETAMINOPHEN 325 MG TAB PO PRN (12:45)
[2024-05-10 13:20] VITALS: PULSE 75; RESP 16; O2SAT 95
[2024-05-10] MEDS: dilTIAZem 25 MG/5 ML VIAL IV ONE (13:42)
[2024-05-10] MEDS: ASPirin 81 mg TAB PO ONE (13:43)
[2024-05-10] MEDS: METOPROLOL TARTRATE 25 MG TAB PO SCH (13:43)
[2024-05-10] MEDS: SODIUM CHLOR 0.9% PF (SALINE LOCK) 10ML VIAL/SYR IV SCH (14:06)
[2024-05-10 20:28] VITALS: PULSE 58; RESP 21; O2SAT 98
[2024-05-10 22:00] VITALS: BP 117/63; PULSE 52; RESP 18; TEMP 97.9; O2SAT 96
[2024-05-10] MEDS ORDERED: TIOT1AER2 INH (22:05)
[2024-05-10] MEDS ORDERED: ALBU108A5 INH (22:05)
[2024-05-10] MEDS ORDERED: FLUT500M2 INH (22:06)
[2024-05-10 22:30] VITALS: BP 117/63; PULSE 52; RESP 21; TEMP 97.9; O2SAT 96
[2024-05-10] MEDS: APIXABAN 5 MG TAB PO SCH (22:40)
[2024-05-11] VITALS (11 sets, daily range): BP systolic 111–144; BP diastolic 52–75; PULSE 48–76; RESP 16–20; TEMP 97.3–98; O2SAT 93–100
[2024-05-11 05:26] LABS: Basophils # (auto) 0.1 10 ^3/uL (0-0.2); Basophils % (auto) 0.7 % (0.0-2.0); Eosinophils # (auto) 0.6 10 ^3/uL (0-0.8); Eosinophils % (auto) 6.7 % (0.0-7.0); Hematocrit 44.7 % (41.0-53.0); Hemoglobin 15.3 g/dL (13.5-17.5); Lymphocytes % (auto) 35.2 % (10.0-50.0); Mean Corpuscular Hemoglobin 30.5 pg (28.0-32.0); Mean Corpuscular Hgb Conc. 34.2 g/dL (32.0-36.0); Mean Corpuscular Volume 89.2 fL (80.0-100.0); Monocytes # (auto) 0.8 10 ^3/uL (0-1.3); Monocytes % (auto) 9.7 % (0.0-12.0); Neutrophils # (auto) 4.1 10 ^3/uL (1.6-8.6); Neutrophils % (auto) 47.7 % (37.0-80.0); Nucleated Red Blood Cells % 0.1 %; Platelet Count (auto) 160 10^3/uL (140-450); Red Blood Cells 5.01 10^6/uL (4.5-5.90); Red Cell Distribution Width 14.6 % (11.8-14.3); White Blood Cell 8.5 10^3/uL (4.4-10.8)
[2024-05-11 05:44] LABS: Alanine Aminotransferase 15 U/L (7-40); Alkaline Phosphatase 69 U/L (46-116); Anion Gap 6 (5-15); Aspartate Aminotransferase 16 U/L (13-40); BUN/Creatinine Ratio 18.8 (10.0-20.0); Bilirubin, Total 0.7 mg/dL (0.2-1.0); Blood Urea Nitrogen 22 mg/dL (9-23); Carbon Dioxide 27 mmol/L (20-31); Chloride 104 mmol/L (98-107); Glucose 104 mg/dL (74-106); Potassium 4.3 mmol/L (3.5-5.1); Sodium 137 mmol/L (136-145); Total Protein 7.1 g/dL (5.7-8.2)
[2024-05-11] MEDS ORDERED: GLUCAGON EMERG KIT 1mg/1ml IV ONE (08:15)
[2024-05-11] MEDS ORDERED: METOPROLOL SUCCINATE XL 50 MG TAB PO SCH (10:00)
[2024-05-11 14:30] LABS: INR 1.12 (0.9-1.15); Partial Thromboplastin Time 30.8 SEC (24.5-34.5); Prothrombin Time 11.8 sec (9.3-11.8)
[2024-05-11] MEDS: TAMSULOSIN HYDROCHLORIDE 0.4 MG CAP PO SCH (18:00)
[2024-05-11] MEDS: LEVALBUTEROL HCL 1.25 MG/3 ML NEB NEB SCH (18:43)
[2024-05-11] MEDS: ATORVASTATIN 20 MG TAB PO SCH (20:47)
[2024-05-12] VITALS (16 sets, daily range): BP systolic 109–137; BP diastolic 58–77; PULSE 52–69; RESP 16–20; TEMP 97.4–98.2; O2SAT 92–100
[2024-05-12 07:05] LABS: Basophils # (auto) 0 10 ^3/uL (0-0.2); Basophils % (auto) 0.4 % (0.0-2.0); Eosinophils # (auto) 0.6 10 ^3/uL (0-0.8); Eosinophils % (auto) 6.4 % (0.0-7.0); Hematocrit 42.8 % (41.0-53.0); Hemoglobin 14.6 g/dL (13.5-17.5); Lymphocytes # (auto) 2.5 10 ^3/uL (0.4-5.4); Lymphocytes % (auto) 26.2 % (10.0-50.0); Mean Corpuscular Hemoglobin 30.3 pg (28.0-32.0); Mean Corpuscular Hgb Conc. 34.1 g/dL (32.0-36.0); Monocytes # (auto) 0.9 10 ^3/uL (0-1.3); Monocytes % (auto) 9.8 % (0.0-12.0); Neutrophils # (auto) 5.5 10 ^3/uL (1.6-8.6); Neutrophils % (auto) 57.2 % (37.0-80.0); Nucleated Red Blood Cells % 0.1 %; Platelet Count (auto) 144 10^3/uL (140-450); Red Blood Cells 4.81 10^6/uL (4.5-5.90); Red Cell Distribution Width 14.6 % (11.8-14.3); White Blood Cell 9.6 10^3/uL (4.4-10.8)
[2024-05-12 07:39] LABS: Alanine Aminotransferase 15 U/L (7-40); Albumin 3.9 g/dL (3.2-4.8); Alkaline Phosphatase 65 U/L (46-116); Anion Gap 6 (5-15); Aspartate Aminotransferase 13 U/L (13-40); BUN/Creatinine Ratio 16.5 (10.0-20.0); Bilirubin, Total 0.8 mg/dL (0.2-1.0); Blood Urea Nitrogen 18 mg/dL (9-23); Calcium 9.4 mg/dL (8.7-10.4); Carbon Dioxide 27 mmol/L (20-31); Chloride 105 mmol/L (98-107); Glucose 121 mg/dL (74-106); Sodium 138 mmol/L (136-145); Total Protein 6.6 g/dL (5.7-8.2)
[2024-05-12] MEDS: LIDOCAINE W/ EPINEPHRINE 2% INJ 20ML VIAL ONE (15:27)
[2024-05-12] MEDS: VANCOMYCIN HCL 1000 MG VL ONE (15:27)
[2024-05-12] MEDS: MIDAZOLAM HCL 2MG/2ML 2ml VIAL (1mg/ml) ONE (15:27)
[2024-05-12] MEDS: fentaNYL CITRATE 100 MCG/2 ML VL ONE (15:27)
[2024-05-12] MEDS: LIDOCAINE 2%HCL (LOCAL ANESTH.) INJ 20ML MDV ONE ×2 (15:28→15:30)
[2024-05-12] MEDS: VANCOMYCIN 1GM/200ML PREMIX 200 ML IV ONE (15:32)
[2024-05-12] MEDS: IOHEXOL 350 MG/ML 100ML IJ ONE (16:06)
[2024-05-13] VITALS (14 sets, daily range): BP systolic 117–139; BP diastolic 56–84; PULSE 52–73; RESP 16–22; TEMP 97.4–97.8; O2SAT 92–100
[2024-05-13 07:04] LABS: Basophils # (auto) 0 10 ^3/uL (0-0.2); Basophils % (auto) 0.4 % (0.0-2.0); Eosinophils # (auto) 0.4 10 ^3/uL (0-0.8); Eosinophils % (auto) 4.7 % (0.0-7.0); Hematocrit 44.5 % (41.0-53.0); Hemoglobin 15.1 g/dL (13.5-17.5); Lymphocytes % (auto) 22.2 % (10.0-50.0); Mean Corpuscular Hemoglobin 30.2 pg (28.0-32.0); Monocytes # (auto) 0.7 10 ^3/uL (0-1.3); Neutrophils # (auto) 5.8 10 ^3/uL (1.6-8.6); Neutrophils % (auto) 64.7 % (37.0-80.0); Nucleated Red Blood Cells % 0.1 %; Platelet Count (auto) 138 10^3/uL (140-450); Red Blood Cells 5.01 10^6/uL (4.5-5.90); Red Cell Distribution Width 14.4 % (11.8-14.3); White Blood Cell 8.9 10^3/uL (4.4-10.8)
[2024-05-13 07:19] LABS: Alanine Aminotransferase 16 U/L (7-40); Albumin 4.2 g/dL (3.2-4.8); Alkaline Phosphatase 71 U/L (46-116); Anion Gap 4 (5-15); Aspartate Aminotransferase 17 U/L (13-40); BUN/Creatinine Ratio 17.6 (10.0-20.0); Blood Urea Nitrogen 18 mg/dL (9-23); Calcium 9.4 mg/dL (8.7-10.4); Carbon Dioxide 27 mmol/L (20-31); Chloride 107 mmol/L (98-107); Glucose 111 mg/dL (74-106); Potassium 4.3 mmol/L (3.5-5.1); Sodium 138 mmol/L (136-145); Total Protein 7.1 g/dL (5.7-8.2)
[2024-05-13] MEDS ORDERED: APIX5TAB PO (16:43)
== END 2024-05-13 20:30 | disposition home or self-care (01) | DRG 243 ==
LOC: ER 11:32 → TELE 12:42 → TELE-WESTW 22:00
PROVIDERS: ADMIT Internal Medicine; ATTEND Emergency Medicine
PROC: 0JH606Z Insertion of Pacemaker, Dual Chamber into Chest Subcutaneous Tissue and Fascia, Open Approach (ICD-10-PCS; principal; 2024-05-12)
PROC: 02H63JZ Insertion of Pacemaker Lead into Right Atrium, Percutaneous Approach (ICD-10-PCS; 2024-05-12)
PROC: 02HK3JZ Insertion of Pacemaker Lead into Right Ventricle, Percutaneous Approach (ICD-10-PCS; 2024-05-12)
DX: I49.5 Sick sinus syndrome (principal); D68.69 Other thrombophilia; I48.0 Paroxysmal atrial fibrillation; I45.5 Other specified heart block; E78.5 Hyperlipidemia, unspecified; J45.909 Unspecified asthma, uncomplicated; R73.03 Prediabetes; N40.0 Benign prostatic hyperplasia without lower urinary tract symptoms; E66.9 Obesity, unspecified; K59.00 Constipation, unspecified; I12.9 Hypertensive chronic kidney disease with stage 1 through stage 4 chronic kidney disease, or unspecified chronic kidney disease; N18.2 Chronic kidney disease, stage 2 (mild); D69.6 Thrombocytopenia, unspecified; K76.89 Other specified diseases of liver; Z79.82 Long term (current) use of aspirin; Z79.899 Other long term (current) drug therapy; Z83.3 Family history of diabetes mellitus; Z79.01 Long term (current) use of anticoagulants; Z68.31 Body mass index [BMI] 31.0-31.9, adult
CPT/HCPCS: 33208; 36415; 71045; 80053; 83036; 83735; 83880; 84439; 84443; 84484; 85025; 85610; 85730; 86850; 86900; 86901; 93005; 93306; 94640; 99152; 99291; G0378; J2250

== ENCOUNTER → 2024-10-03 | Outpatient (CLI) | payer BC ==
[~2024-10-03] MED LIST changes: +ALBU108A5 INH; -ALBUAER3 IN; +APIX5TAB PO; -ASPI-378 OR; -CHOL25CH3 PO; -FLUT500M2 IN; +FLUT500M2 INH; -LATA0.008 EACHEYE; +TIOT1AER2 INH
--- NOTE | 2024-10-04 10:42 | DVHNC2 ---
Procedure - October 03, 2024 Pulmonary function test interpretation: Moderate obstructive ventilatory defect with restrictive component. No significant bronchodilator response. FEV1 improved by 130 mL. Total lung capacity is below normal limits, 60% of predicted (4.25 L). Diffusion capacity is within normal limits, 100% of predicted. GRUPO HAMMOND RESIDENT Oct 04, 2024 10:42
--- NOTE | 2024-10-04 10:43 | DVHNC2 ---
Procedure - Entered in error. GRU[facility] HAMMOND RESIDENT Oct 04, 2024 10:43
== END | disposition home or self-care (01) ==
LOC: RT 10:32
PROVIDERS: ATTEND Internal Medicine Pulmonary Disease
DX: J44.9 Chronic obstructive pulmonary disease, unspecified (principal)
CPT/HCPCS: 94060; 94727; 94729

== ENCOUNTER → 2024-11-15 | Outpatient (CLI) | payer BC ==
[2024-11-15 07:19] LABS: Urine Bacteria None Seen /hpf (None Seen)
[2024-11-15 07:30] LABS: Basophils # (auto) 0.1 10 ^3/uL (0-0.2); Basophils % (auto) 0.9 % (0.0-2.0); Eosinophils # (auto) 0.6 10 ^3/uL (0-0.8); Eosinophils % (auto) 7.8 % (0.0-7.0); Hematocrit 44.4 % (41.0-53.0); Hemoglobin 14.8 g/dL (13.5-17.5); Lymphocytes # (auto) 2.4 10 ^3/uL (0.4-5.4); Mean Corpuscular Hemoglobin 29.4 pg (28.0-32.0); Mean Corpuscular Hgb Conc. 33.4 g/dL (32.0-36.0); Mean Corpuscular Volume 87.8 fL (80.0-100.0); Monocytes # (auto) 0.7 10 ^3/uL (0-1.3); Monocytes % (auto) 8.4 % (0.0-12.0); Neutrophils % (auto) 51.9 % (37.0-80.0); Platelet Count (auto) 196 10^3/uL (140-450); Red Blood Cells 5.06 10^6/uL (4.5-5.90); Red Cell Distribution Width 14.3 % (11.8-14.3); White Blood Cell 7.8 10^3/uL (4.4-10.8)
[2024-11-15 07:54] LABS: Urine Blood 1+ /uL (Negative); Urine Clarity Clear (Clear); Urine Color Light-Yellow (Yellow); Urine Protein, UAD Negative (Negative); Urine Specific Gravity 1.022 (1.001-1.035); Urine Squamous Epithelial Cell None Seen /hpf (<5); Urine Urobilinogen Normal (Negative); Urine WBC < 1 /HPF (0-3)
[2024-11-15 08:03] LABS: Alanine Aminotransferase 17 U/L (7-40); Albumin 4.4 g/dL (3.2-4.8); Alkaline Phosphatase 78 U/L (46-116); Anion Gap 8 (5-15); Aspartate Aminotransferase 16 U/L (13-40); BUN/Creatinine Ratio 22.9 (10.0-20.0); Bilirubin, Total 0.6 mg/dL (0.2-1.0); Calcium 9.8 mg/dL (8.7-10.4); Carbon Dioxide 28 mmol/L (20-31); Chloride 102 mmol/L (98-107); Cholesterol 163 mg/dL (< 200); HDL Cholesterol 46 mg/dL (40-59); Potassium 4.5 mmol/L (3.5-5.1); Sodium 138 mmol/L (136-145); Total Protein 7.5 g/dL (5.7-8.2); Triglycerides 74 mg/dL (< 150)
[2024-11-15 08:04] LABS: Blood Urea Nitrogen 25 mg/dL (9-23); Erythrocyte Sedimentation Rate 25 mm/hr (0-20); Glucose 129 mg/dL (74-106); LDL Cholesterol 105 mg/dL (< 100)
[2024-11-15 09:22] LABS: Prostate Specific Antigen 0.63 ng/mL (0.0-4.0)
[2024-11-15 09:28] LABS: Free T4 (Free Thyroxine) 1.04 ng/dL (0.89-1.76)
== END | disposition home or self-care (01) ==
LOC: LAB 07:03
PROVIDERS: ATTEND Internal Medicine
DX: N40.0 Benign prostatic hyperplasia without lower urinary tract symptoms (principal); I10 Essential (primary) hypertension; D69.6 Thrombocytopenia, unspecified
CPT/HCPCS: 36415; 80053; 80061; 81001; 82607; 84153; 84439; 84443; 85025; 85652; 86038